=== PATIENT | male | born 1985 | race Two or more races ===

== ENCOUNTER 2021-07-31 16:37 | Emergency (ER) | payer OTHER ==
[~2021-07-31] VITALS: Ht 182.9 cm; Wt 65.8 kg
== END 2021-07-31 18:18 | disposition home or self-care (01) ==
LOC: ER 16:37
DX: S40.011A Contusion of right shoulder, initial encounter (principal); S80.02XA Contusion of left knee, initial encounter; W18.39XA Other fall on same level, initial encounter; Y93.89 Activity, other specified; Y92.89 Other specified places as the place of occurrence of the external cause; Y99.8 Other external cause status